=== PATIENT | male | born 1980 | race Two or more races ===

== ENCOUNTER 2016-08-03 21:33 | Emergency (ER) | payer SELFPAY ==
[~2016-08-03] VITALS: Ht 167.6 cm; Wt 90.7 kg
--- NOTE | 2016-08-03 21:57 | NUR ---
PT AMBULATORY TO ER BED 09. PRESENTS W/ LT EYE REDNESS AND DISCOMFORT X 1WEEK. PT DENIES PAIN STATING IT IS MOSTLY DISCOMFORT. RASH APPEARING ON THE EYELID. NO LOSS OF VISION. PT STATES STARTED BLURRING TODAY. STABLE VITALS. AWAITING MD HALEY.
[2016-08-03] MEDS ORDERED: TETRACAINE HCL/PF 0.5% UD 2 ML BOTTLE ONE (22:14)
[2016-08-03] MEDS ORDERED: FLUORESCEIN SODIUM OPHTH 1 EA STRIP ONE (22:14)
--- NOTE | 2016-08-03 22:15 | NUR ---
DR AMBROCIO AT BEDSIDE FOR EVAL.
[2016-08-03] MEDS: FLUORESCEIN SODIUM OPHTH 1 EA STRIP OP ONE (22:26)
[2016-08-03] MEDS: TETRACAINE HCL/PF 0.5% UD 2 ML BOTTLE OP ONE (22:26)
--- NOTE | 2016-08-03 22:35 | NUR ---
CALLED ANSWERING SERVICE FOR DR ORDAZ FOR CONSULT, LEFT MESSAGE
[2016-08-03] MEDS ORDERED: ACYCLOVIR 200 MG CAPSULE ONE (22:39)
[2016-08-03] MEDS: ACYCLOVIR 200 MG CAPSULE PO ONE (22:49)
--- NOTE | 2016-08-03 23:14 | NUR ---
Patient discharged to home in stable condition. Written and verbal after care instructions given. Patient verbalizes understanding of instruction.
[2016-08-03 23:17] VITALS: BP 121/77
== END 2016-08-03 23:18 | disposition home or self-care (01) ==
LOC: ER 21:33
DX: B00.52 Herpesviral keratitis (principal)
CPT/HCPCS: 99283; A4606; Z7610